=== PATIENT | male | born 1935 | race Caucasian/White ===

== ENCOUNTER → 2017-01-30 09:49 | Outpatient (CLI) | payer MEDICARE ==
[2014-07-16 17:04] VITALS: BMI 25.9
[~2017-01-30 09:49] MED LIST: BAYER ASPIRIN325 MG PO; LISINOPRIL10 MG GT; PHENERGAN25 M1 PO; PRAVACHOL40 MG PO
== END | disposition home or self-care (01) ==
LOC: D.CT 09:49
DX: I71.4 Abdominal aortic aneurysm, without rupture (principal)

== ENCOUNTER 2017-10-15 05:29 | Observation (INO) | payer MEDICARE ==
[~2017-10-15] VITALS: Ht 170.2 cm; Wt 69.5 kg
--- NOTE | ~2017-10-15 | HEMODYNAMI ---
PATIENT:IRSHI VAZQUEZ MEDICAL RECORD: [id number] : 33 LOCATION:[place] [address] ADMISSION DATE: 10/15/17 Generatedon:10/15/201715:10 Patient name: RISHI VAZQUEZ Patient #: [id number] SSN: : 1935 Date of study: 10/15/2017 Page: Of Hemodynamic Procedure Report Patient Data Patient Demographics Procedure consent was obtained First Name: RISHI Gender: Male Last Name: TAYLOR : 1935 Middle Initial: F Age: 82 year(s) Patient #: [id number] Race: Unknown Additional ID: [id number] Contact details Address: [place] [address] State: [place] City: [place] Zip code: [address] Past Medical History Allergies Allergen Reaction Date Comments Reported Other allergy 10/15/2017 morphine Admission Admission Data Admission Date: 10/15/2017 Admission Time: 6:34 Room #: [facility] Lab Results Lab Result Date: 10/15/2017 Lab Result Time: 5:40 Biochemistry Name Units Result Min Max BUN mg/dl 24 --(----)-* 7 18 Creatinine mg/dl 1.2 --(---*)-- 0.6 1.3 CBC Name Units Result Min Max Hematocrit % 43 --(*---)-- 42 54 Hemoglobin g/dl 14.4 --(*---)-- 13.5 17.5 Procedure Procedure Types Cath Procedure Diagnostic Procedure LHC LHC w/Coronaries Miscellaneous Procedures Moderate Sedation up to 15 minutes Procedure Description Procedure Date Procedure Date: 10/15/2017 Procedure Start Time: 14:57 Procedure End Time: 15:09 Procedure Staff Name Function Anirudh Brantley MD Performing Physician Chad Stevens RT Monitor Ivelisse Valente RT Scrub Trice Vallejo RN Nurse Procedure Data Cath Procedure Fluoroscopy Diagnostic fluoroscopy Total fluoroscopy Time: 1.2 time: 1.2 min min Diagnostic fluoroscopy Total fluoroscopy dose: 357 dose: 357 mGy mGy Contrast Material Contrast Material Type Amount (ml) Isovue 300 66 Entry Location Entry Primary Successful Side Size Upsize Upsize Entry Closure Succes sful Closure Location (Fr) 1 (Fr) 2 (Fr) Remarks Device Remarks Femoral Right 5 Fr Exoseal artery Estimated blood loss: 5 ml Diagnostic catheters Device Type Used For End Catheter Placement Cordis 5Fr JL 4.0 Procedure Catheter (MP) Cordis 5Fr 3DRC Catheter Procedure (MP) Cordis 5Fr Pigtail Procedure Catheter (MP) Procedure Complications No complications Procedure Medications Medication Administration Route Dosage 0.9% NaCl I.V. ml/hr Oxygen NC 2 l/min Lidocaine 2% added to field 20 Heparin Flush Bag added to field 2 bags (1000units/500ml NS) Fentanyl I.V. 50 mcg Versed I.V. 1 mg Versed I.V. 1 mg Fentanyl I.V. 50 mcg Hemodynamics Rest HGB: 14.4 (g/dl) Heart Rate: 64 (bpm) Pressure Samples Time Site Value (mmHg) Purpose Heart Use Rate(bpm) 15:02 LV 105/-22,0 Snapshot 71 Gradients Valve Time Site Site Mean SEP/DFP Peak To Heart Use 1 2 (mmHg) (sec/min) Peak Rate (mmHg) (bpm) Aortic 15:02 LV AO 54 Snapshots Pre Cath Intra NCS Post Cath Vital Signs Time Heart Resp SPO2 etCO2 NIBP (mmHg) Rhythm Pain Sedation Rate (ipm) (%) (mmHg) Status Level (bpm) 14:38:08 74 16 94 Measuring NSR 0 (11) 10(A) , No pain 14:38:43 75 18 94 117/72(101) NSR 0 (11) 10(A) , No pain 14:43:42 73 14 96 31.5 Measuring NSR 0 (11) 10(A) , No pain 14:44:03 76 16 94 33.8 127/67(101) NSR 0 (11) 10(A) , No pain 14:48:45 75 17 94 33 128/65(89) NSR 0 (11) 9(A) , No pain 14:53:24 77 14 95 0 118/63(79) NSR 0 (11) 9(A) , No pain 14:58:03 70 19 94 24.7 109/63(84) NSR 0 (11) 10(A) , No pain 15:02:41 70 15 94 30 117/55(87) NSR 0 (11) 10(A) , No pain 15:07:18 68 15 96 27.7 114/72(91) NSR 0 (11) 10(A) , No pain Medications Time Medication Route Dose Verified Delivered Reason Notes Effe ctiveness by by 14:36:15 0.9% NaCl I.V. 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 50 Anirudh Trice for [facility] RN sedation 14:48:28 Versed I.V. 1 mg Anirudh Trice for [facility] RN sedation 14:55:39 Versed I.V. 1 mg Anirudh Trice for [facility] RN sedation 14:55:46 Fentanyl I.V. 50 Anirudh Trice for [facility] RN sedation Procedure Log Time Note 14:22:26 Chad Stevens RT(R) sent for patient. Start room use. 14:22:27 Time tracking: Regular hours 14:22:31 Plan of Care:Hemodynamics will remain stable., Cardiac rhythm will remain stable., Comfort level will be maintained., Respiratory function will remain adequate., Patient/ family verbilizes understanding of procedure., Procedure tolerated without complication., Recovers from procedure without complications.. 14:29:23 Patient received from PCU to CCL 1 Alert and oriented. Tansferred to table in Supine position. 14:29:23 Warm blankets applied, and stacey hugger turned on for patient comfort. 14:29:24 Correct patient and procedure confirmed by team. 14:29:25 Signed procedure consent form obtained from patient. 14:29:26 ECG and BP/O2 sat monitors applied to patient. 14:29:27 Full Disclosure recording started 14:36:15 0.9% NaCl ml/hr I.V. was administered by Trice Vallejo RN; used for procedure; 14:36:26 Oxygen 2 l/min NC was administered by Trice Vallejo RN; Per physician; 14:36:40 Lidocaine 2% 20ml vial added to field was administered by Anirudh Brantley MD; for local anesthetic; 14:36:52 Heparin Flush Bag (1000units/500ml NS) 2 bags added to field was administered by Anirudh Brantley MD; used for procedure; 14:37:00 Vital chart was started 14:43:39 Baseline sample Acquired. 14:43:51 Rhythm: sinus rhythm 14:45:12 H&P Date Dictated: 10/15/2017 Within 30 days and on chart.. 14:45:14 Pre-procedure instructions explained to patient. 14:45:14 Pre-op teaching completed and patient verbalized understanding. 14:45:17 Family in patients room. 14:45:18 Patient NPO since Midnight. 14:45:28 Patient allergic to Other allergymorphine 14:45:31 Is the patient allergic to Iodine/contrast media? No. 14:45:37 Is patient on blood thinner?No 14:45:38 Patient diabetic? No. 14:45:42 Previous problem with sedation/anesthesia? No ? 14:45:43 Snore? Yes 14:45:44 Sleep apnea? No 14:45:45 Deviated septum? No 14:45:46 Opens mouth fully? Yes 14:45:47 Sticks out tongue? Yes 14:45:51 Airway obstruction? No ? 14:45:53 Dentures? Yes Out 14:46:01 Pre procedure: right posterior tibial pulse 1+ Palpable, but thready & weak; easily obliterated 14:46:03 Patient pain scale 0/10 ?. 14:46:21 IV patent on arrival in left wrist with 0.9% NaCl at [facility]. 14:47:01 Lab Result : BUN 24 mg/dl 14:47:01 Lab Result : Creatinine 1.2 mg/dl 14:47:01 Lab Result : Hemoglobin 14.4 g/dl 14:47:01 Lab Result : Hematocrit 43 % 14:47:03 Lab results completed and on chart. 14:47:07 Right groin area was prepped with chlora-prep and draped in sterile fashion 14:47:08 Alarms reviewed by R. N. 14:47:08 Sharps counted by scrub and verified by R.N. 14:47:10 Use device set Femoral Dx 14:47:11 Tegaderm 4 x 4 opened to sterile field. 14:47:12 Acist Manifold opened to sterile field. 14:47:12 Acist Hand Control opened to sterile field. 14:47:13 Acist Syringe opened to sterile field. 14:47:14 Bag Decanter opened to sterile field. 14:47:14 Medline Cath Pack opened to sterile field. 14:47:15 Terumo 5Fr [place] Sheath opened to sterile field. 14:47:16 St Clint 260cm J .035 wire opened to sterile field. 14:47:18 Diagnostic Infinity 5Fr Multipack catheter opened to sterile field. 14:47:27 Physician arrived 14:47:27 --------ALL STOP TIME OUT------ 14:47:28 Final Timeout: patient, procedure, and site verified with staff and physician. All members of the team are in agreement. 14:47:28 Final Timeout: patient, procedure, and site verified with staff and physician. All members of the team are in agreement. 14:47:29 Right groin site verified by team. 14:47:32 Physical assessment completed. ASA score P 2 - A patient with mild systemic disease as per Anirudh Brantley MD. 14:47:35 Sedation plan: IV Moderate Sedation Medication:Versed, Fentanyl 14:48:18 Fentanyl 50 mcg I.V. was administered by Trice Vallejo RN; for sedation; 14:48:28 Versed 1 mg I.V. was administered by Trice Vallejo RN; for sedation; 14:55:39 Versed 1 mg I.V. was administered by Trice Vallejo RN; for sedation; 14:55:46 Fentanyl 50 mcg I.V. was administered by Trice Vallejo RN; for sedation; 14:57:27 Procedure started. 14:57:30 Local anesthetic to right femoral artery with Lidocaine 2% by Anirudh Brantley MD.INITIAL ACCESS ONLY 14:57:37 A 5 Fr sheath was inserted into the Right Femoral artery 14:57:41 Zero performed for pressure channel P1 14:57:44 Zero performed for pressure channel P1 14:57:47 Zero performed for pressure channel P1 14:57:52 Zero performed for pressure channel P1 14:57:56 Zero performed for pressure channel P1 14:57:58 Zero performed for pressure channel P1 14:58:02 Zero performed for pressure channel P1 14:58:38 Zero performed for pressure channel P1 14:58:52 A Cordis 5Fr JL 4.0 Catheter (MP) was advanced over the wire and used for Procedure. 14:59:06 LCA angiography performed. 14:59:46 Catheter exchanged over wire. 14:59:50 A Cordis 5Fr 3DRC Catheter (MP) was advanced over the wire and used for Procedure. 15:00:44 RCA angiography performed. 15:01:26 Catheter exchanged over wire. 15:01:30 A Cordis 5Fr Pigtail Catheter (MP) was advanced over the wire and used for Procedure. 15:02:30 LV gram done using ARELLANO 15:02:32 Injector settings: Ml/sec: 10, Volume: 20, 15:02:43 EF : 55 % 15:02:57 Cordis 5Fr Exoseal opened to sterile field. 15:04:33 Catheter exchanged over wire. 15:04:39 Sheath removed intact; hemostasis achieved with Exoseal to the Right Femoral artery. 15:04:40 Procedure ended.(Physican Out) 15:04:52 Fluoroscopy time 01.20 minutes. 15:05:08 Fluoroscopy dose: 357 mGy 15:05:08 Flurop Dose total: 357 15:05:10 Contrast amount:Isovue 300 66ml. 15:05:11 Sharps counted by scrub and verified by R.N. 15:05:12 Insertion/operative site no bleeding no hematoma. 15:05:15 Post-op/insertion site Right Femoral artery dressed using a 4 x 4 and Tegaderm. 15:05:18 Post right femoral artery:stable, soft, clean and dry 15:05:20 Post Procedure Pulses reassessed and unchanged 15:05:22 Post-procedure physical assessment completed. ASA score P 2 - A patient with mild systemic disease as per Anirudh Brantley MD. 15:05:24 Post procedure rhythm: unchanged. 15:05:27 Estimated blood loss: 5 ml 15:05:29 Post procedure instruction explained to patient.Patient verbalizes understanding. 15:05:29 Patient needs reinforcement of post procedure teaching. 15:07:02 Procedure type changed to Cath procedure, Diagnostic procedure, LHC, LHC w/Coronaries, Miscellaneous Procedures, Moderate Sedation up to 15 minutes 15:09:44 Procedure and supply charges have been captured, reviewed, submitted and are correct. 15:09:46 Procedure Complication : No complications 15:09:48 Vital chart was stopped 15:09:48 See physician's report for complete and final results. 15:09:50 Report given to PCU. 15:09:52 Patient transfered to PCU with Stretcher. 15:09:54 Procedure ended. 15:09:54 Full Disclosure recording stopped 15:10:06 End room use (Document Last) Device Usage Item Name Manufacture Quantity Catalog Hospital Part Current Minimal Lo t# / Number Charge Number Stock Stock Serial# Code Tegaderm 4 1 [id number] 188408 [id number] 5 x 4 Acist Acist 1 54743 368730 929696 562689 5 Manifold [employer] Inc Acist Hand Acist 1 95774 410401 364088 964042 5 Control [employer] Inc Acist Acist 1 56504 056238 726624 540213 20 Syringe [employer] Inc Bag Microtek 1 2002S 755277 51195 933957 5 Decanter [employer] Inc. Medline Cardinal 1 [id number] 175864 89299 407944 5 Cath Pack Health Terumo 5Fr Terumo 1 [id number] 304649 450074 035963 [address] Clint 1 086074 438276 038444 976744 30 260cm J .035 wire Diagnostic Cardinal 1 [id number] 650166 30996 137971 30 Infinity Health 5Fr Multipack catheter Cordis 5Fr Cardinal 1 [id number] 5 JL 4.0 Health Catheter (MP) Cordis 5Fr Cardinal 1 807480 5 3DRC Health Catheter (MP) Cordis 5Fr Cardinal 1 805489 5 Pigtail Health Catheter (MP) Cordis 5Fr Cardinal 1 EX500 735034 661166 707275 10 Authentic Response Signature Audit [place] Stage Time Signature Unsigned Intra-Procedure 10/15/2017 Chad Stevens 3:10:24 PM RT(R) Signatures Monitor : Chad Stevens RT Signature : Date : Time : [address] [place] [address]
[~2017-10-15 05:29] MED LIST changes: -LISINOPRIL10 MG GT; +LISINOPRIL10 MG PO
[2017-10-15 05:50] LABS: BASOPHILS 0.5 % (0-2); EOSINOPHILS 2.1 % (0-7); HEMOGLOBIN 14.4 g/dL (13.5-17.5); IMMATURE GRANULOCYTES 0.2 % (0-5); LYMPHOCYTES 44.9 % (15-50); MCH 32.9 pg (26.0-34.0); MCHC 33.5 g/dL (31.0-37.0); MCV 98.2 fL (80.0-100.0); MEAN PLATELET VOLUME 10.7 fL (7.4-10.4); MONOCYTES 10.3 % (2-11); PLATELET COUNT 211 10x3/uL (130-400); RBC 4.38 10x6/uL (4.20-6.10); RDW 13.6 % (11.5-14.5); WBC 6.2 10x3/uL (4.8-10.8)
[2017-10-15 06:04] LABS: ALBUMIN 3.9 g/dL (3.4-5.0); ALKALINE PHOSPHATASE 39 U/L (46-116); ALT (SGPT) 34 U/L (10-68); CALC OSMOLALITY 279 mosm/kg (275-300); CALCIUM 8.7 mg/dL (8.5-10.1); CARBON DIOXIDE 25.9 mmol/L (21.0-32.0); CHLORIDE - SERUM 102 mmol/L (98-107); CREATININE - SERUM 1.2 mg/dL (0.6-1.3); GLUCOSE 106 mg/dL (74-106); POTASSIUM - SERUM 3.9 mmol/L (3.5-5.1); PROTEIN - SERUM 6.9 g/dL (6.4-8.2); SODIUM 138 mmol/L (136-145); UREA NITROGEN 24 mg/dL (7-18); eGFR NON AFRICAN AMERICAN 61 mL/min (90-120)
[2017-10-15 06:15] LABS: CHOL - HDL RATIO 3.6 ratio (2.3-4.9); CHOLESTEROL, TOTAL 150 mg/dL (0-200); CKMB 2.1 U/L (0.0-3.6); CREATINE KINASE 90 UL (21-232); HDL CHOLESTEROL 42 mg/dL (32-96); LDL CHOLESTEROL 86 mg/dL (0-100); PRO BNP 152 pg/mL (0-450); TRIGLYCERIDE 110 mg/dL (30-200); TROPONIN-I < 0.017 ng/mL (0.000-0.060)
--- NOTE | 2017-10-15 07:30 | NUR ---
RECEIVED PT IN BED AAOX4 RESP UNLABORED DENIES ANY NEEDS OR DOSCOMFORT AT THIS TIME
[2017-10-15 07:42] VITALS: Ht 170.2 cm; Wt 69.5 kg
[2017-10-15] MEDS ORDERED: XANAX0.5 MG PO (08:06)
[2017-10-15] MEDS ORDERED: HYDROCODONE-APA1 TAB PO (08:07)
[2017-10-15 12:00] VITALS: BP 113/64
--- NOTE | 2017-10-15 14:27 | NUR ---
PT TO [employer] VIA BED IN STABLE CONDITION
--- NOTE | 2017-10-15 15:20 | NUR ---
RECEIVED PT BACK FROM [employer] AAOX4 VSS RT GROIN SOFT WITH DRSG C/D/I PPPX4 WILL CONTINUE TO MONITOR
--- NOTE | 2017-10-15 18:30 | NUR ---
REVIEWED DISCHARGE INSTRUCTIONS WITH PT AND STATE UNDERSTANDING COPY GIVEN SALINE LOCK DCD RFA WITH IV CATHETER INTACT SITE FREE OF REDNESS OR EDEMA PT DISCHARGED HOME LEFT UNIT VIA W/C IN STABLE CONDTITION WITH ALL PERSONAL BELONGINGS
--- NOTE | 2017-10-16 13:00 | OP ---
PATIENT NAME: RISHI VAZQUEZ MEDICAL RECORD: [id number] :34 LOCATION:D.M2 D.2118 ADMISSION DATE:10/15/17 SURGEON: YUDELKA CAO MD DATE OF OPERATION: 10/15/2017 PROCEDURE: Left heart catheterization, selective coronary angiography, right femoral artery approach. CATHETERS: A 5-Maltese sheath, 5/4 left and right Maurizio, 5/4 pig. The procedure was tolerated and the patient was returned to the marroquin, sheath removed. ExoSeal device placed. FINDINGS: Left ventriculography in the 30-degree ARELLANO view: Normal wall motion, normal systolic function. CORONARY ANATOMY. LEFT MAIN: Left main is free of disease. LAD: LAD is widely patent in area of previous stenting. No evidence of progression of tanana disease. CIRCUMFLEX: Circumflex is free of disease. RIGHT CORONARY ARTERY: Again, widely patent stent, no progression of tanana disease. IMPRESSION: A widely patent stent, no progression of tanana disease. LV function remains normal. TRANSINT:[id number] Voice Confirmation ID: [id number] DOCUMENT ID: [id number] YUDELKA CAO MD at 1300 CC: [id number] DICTATION DATE: 10/15/17 1509 ASSOCIATE PROFESSOR OF AUTOMATION: 10/15/17 1526 DIS IN 10/15/17 [facility] [address] [place] [address]
--- NOTE | 2017-10-16 13:00 | CN ---
PATIENT NAME:RISHI VAZQUEZ MEDICAL RECORD: [id number] : 34 LOCATION:. D.2118 ADMIT DATE: 10/15/17 ACCOUNT: [id number] CONSULTING PHYSICIAN: YUDELKA CAO MD REFERRING PHYSICIAN: KYLE WALTERS MD DATE OF CONSULTATION: 10/15/2017 HISTORY OF PRESENT ILLNESS: An 82-year-old gentleman with known history of coronary artery disease, status post stenting, most recently in [address] Bermudez, a 2-3 week history of progressing chest tightness, pressure, redness noted with his angina. This was exertional symptoms only up until yesterday, had rest symptomatology, relieved with 2 nitroglycerins, consistent with accelerating angina pattern. We are asked to see him concerning his cardiovascular status. PAST MEDICAL HISTORY: Includes: 1. History of hypertension. 2. Hyperlipidemia. ALLERGIES: MORPHINE. MEDICATIONS: Include lisinopril 10 mg p.o. daily, pravastatin 40 daily, Xanax 0.5 b.i.d. as needed, aspirin 325 daily, [place] 10/325 every 6 hours as needed. SOCIAL HISTORY: . He is a nonsmoker, nondrinker. Good social support. Easily takes care of all ADLs. REVIEW OF SYSTEMS: The patient reports easy bruising but reports no swollen glands. The patient reports no fever, no night sweats, no significant weight gain, no significant weight loss. No significant exercise tolerance. The patient reports no dry eyes, no irritation, no vision change. Patient reports no difficulty hearing and no ear pain. Patient reports no frequent nose bleeds or nose and sinus problems. Patient reports on arm pain on exertion. No shortness of breath while lying down. No history of heart murmur. Patient reports no cough, no wheezing or coughing up blood. Patient reports no abdominal pain, no vomiting. Normal appetite. No diarrhea and not vomiting blood. No nausea and no constipation. Patient reports no incontinence. No difficulty urinating. No hematuria. No increased frequency. Patient reports no muscle aches. No weakness, no arthralgias, no back pain. No swelling of the extremities. Patient reports no abnormal mole, no jaundice, no rashes. Reports no loss of consciousness. No weakness and no numbness. No seizures, dizziness, or headaches. The patient reports no depression, no sleep disturbance, feeling safe in a relationship and no alcohol abuse. Patient reports on fatigue. Reports no runny nose or sinus pressure. No itching, no hives, and no frequent sneezing. PHYSICAL EXAMINATION: GENERAL: Pleasant gentleman in no acute distress. VITAL SIGNS: Blood pressure 124/64, pulse 65 and regular. HEENT: Normocephalic, atraumatic. NECK: No bruits noted. HEART: Regular. LUNGS: Suazo are clear. ABDOMEN: Soft, nontender. EXTREMITIES: Pulse 2+ and equal. No edema. CONSULT REPORT [id number] TAYLORRISHI Jazzy NEUROLOGIC: Grossly intact. DIAGNOSTIC DATA: ECG without acute change. IMPRESSION: Accelerated angina, known history of coronary artery disease. PLAN: Diagnostic angiography, intervention based on above. TRANSINT:[id number] Voice Confirmation ID: [id number] DOCUMENT ID: [id number] YUDELKA CAO MD at 1300 CC: [id number] DICTATION DATE: 10/15/17831 ASSAYER: 10/15/17 1258 DIS IN 10/15/17 [place] [address] [place] [address]
== END 2017-10-15 18:30 | disposition home or self-care (01) ==
LOC: D.ER 05:29 → OBSVTIME 06:34 → D.M2 06:34
PROVIDERS: Family Medicine; ADMIT Family Medicine
DX: R07.9 Chest pain, unspecified (principal); I25.10 Atherosclerotic heart disease of native coronary artery without angina pectoris; Z98.61 Coronary angioplasty status; I10 Essential (primary) hypertension; E78.5 Hyperlipidemia, unspecified; Z72.0 Tobacco use